=== PATIENT | female | born 1930 | race African-American/Black ===

== ENCOUNTER → 2017-11-20 | Outpatient (CLI) | payer MEDICARE, OTHER, MEDICAID ==
[~2017-11-20] MED LIST: ANAS1TAB49 PO; ASPI81TA33 PO; AZIL1TAB3 PO; DILT240C93 PO; ESOM20CA31 PO; ROSU20 PO; TRAVZOS OP
[2017-11-20 13:27] LABS: ALANINE AMINOTRANSFERASE 19 U/L (12-78); ALBUMIN 3.6 g/dL (3.4-5.0); ALKALINE PHOSPHATASE 115 U/L (46-116); ANION GAP 6 mmol/L (8-16); ASPARTATE AMINOTRANSFERASE 18 U/L (15-37); BILIRUBIN,TOTAL 0.3 mg/dL (0.1-1.0); CALCIUM, TOTAL 9.6 mg/dL (8.8-10.5); CARBON DIOXIDE 32 mmol/L (22-29); CHLORIDE 102 mmol/L (98-107); CREATININE 0.84 mg/dL (0.60-1.30); GLOMERULAR FILTR. RATE CALC > 60 mL/min (>60); GLUCOSE,RANDOM 95 mg/dL (70-110); SODIUM SERUM 140 mmol/L (136-145); TOTAL PROTEIN, SERUM 7.2 g/dL (6.4-8.2); UREA NITROGEN, BLOOD 16 mg/dL (7-18)
== END | disposition home or self-care (01) ==
LOC: LABPV 10:55
PROVIDERS: ATTEND Internal Medicine Gastroenterology
DX: K86.2 Cyst of pancreas (principal)

== ENCOUNTER → 2017-11-25 | Outpatient (CLI) | payer MEDICARE, OTHER ==
[~2017-11-25] VITALS: Ht 172.7 cm; Wt 75.0 kg
[~2017-11-25] MED LIST changes: +ALBU8HFA IH; +BENZ-51 PO; +MEGE40 PO; +MOME17N NASAL; +MONT10TA21 PO
[2017-11-25 09:52] VITALS: BP 102/60
== END | disposition home or self-care (01) ==
LOC: SRCNTR 09:39
PROVIDERS: ATTEND Internal Medicine Cardiovascular Disease
DX: I11.9 Hypertensive heart disease without heart failure (principal); I25.10 Atherosclerotic heart disease of native coronary artery without angina pectoris; J06.9 Acute upper respiratory infection, unspecified; Z86.73 Personal history of transient ischemic attack (TIA), and cerebral infarction without residual deficits; Z98.61 Coronary angioplasty status; Z92.3 Personal history of irradiation
CPT/HCPCS: G0463

== ENCOUNTER → 2018-01-14 | Outpatient (CLI) | payer MEDICARE, OTHER ==
[~2018-01-14] VITALS: Ht 172.7 cm; Wt 75.0 kg
[~2018-01-14] MED LIST changes: -ASPI81TA33 PO; +ASPI81TA42 PO; +ATOR20TA86 PO; -AZIL1TAB3 PO; +DILT120C95 PO; -DILT240C93 PO; -ESOM20CA31 PO; +KCIT5T PO; -ROSU20 PO; -TRAVZOS OP
[2018-01-14 10:38] VITALS: BP 135/70
== END | disposition home or self-care (01) ==
LOC: SRCNTR 10:14
PROVIDERS: ATTEND Internal Medicine Cardiovascular Disease
DX: I11.9 Hypertensive heart disease without heart failure (principal); I25.10 Atherosclerotic heart disease of native coronary artery without angina pectoris; Y84.2 Radiological procedure and radiotherapy as the cause of abnormal reaction of the patient, or of later complication, without mention of misadventure at the time of the procedure; Z79.82 Long term (current) use of aspirin; Z85.3 Personal history of malignant neoplasm of breast; Z86.73 Personal history of transient ischemic attack (TIA), and cerebral infarction without residual deficits; Z98.61 Coronary angioplasty status; Z92.3 Personal history of irradiation
CPT/HCPCS: 93005; G0463

== ENCOUNTER → 2018-01-15 | Outpatient (CLI) | payer MEDICARE, MEDICAID, OTHER ==
[~2018-01-15] MED LIST changes: -ANAS1TAB49 PO; -ASPI81TA42 PO; -ATOR20TA86 PO; -DILT120C95 PO; -KCIT5T PO; -MOME17N NASAL
[2018-01-15 10:06] LABS: BASOPHILS % (AUTO) 0.4 % (0.0-2.0); EOSINOPHILS % (AUTO) 1.5 % (1.0-6.0); HEMATOCRIT 38.6 % (36-46); HEMOGLOBIN 13.3 g/dL (12.0-16.0); LYMPHOCYTES # (AUTO) 2.3 K/uL (1.0-4.8); LYMPHOCYTES % (AUTO) 29.4 % (22.0-44.0); MEAN CORPUSCULAR HEMOGLOBIN 30.5 pg (26.0-34.0); MEAN CORPUSCULAR HGB CONC 34.4 G/dL (31.0-37.0); MEAN CORPUSCULAR VOLUME 89 fL (80-100); MONOCYTES # (AUTO) 0.8 K/uL (0.1-1.0); MONOCYTES % (AUTO) 10.1 % (2.0-9.0); NEUTROPHILS # (AUTO) 4.6 K/uL (1.8-7.7); NEUTROPHILS % (AUTO) 58.6 % (40.0-70.0); PLATELET COUNT (AUTO) 286 K/uL (150-450); RED BLOOD CELL COUNT(AUTO) 4.35 MIL/uL (4.00-5.20); RED CELL DISTRIBUTION WIDTH 14.4 % (11.5-14.5)
[2018-01-15 10:12] LABS: HEMOGLOBIN A1C 5.8 % (4.5-6.2)
[2018-01-15 10:23] LABS: ALBUMIN 3.6 g/dL (3.4-5.0); BILIRUBIN,TOTAL 0.6 mg/dL (0.1-1.0); CALCIUM, TOTAL 9.5 mg/dL (8.8-10.5); CHOL/HDL RATIO 2.5 (3.9-5.7); CREATININE 1.05 mg/dL (0.60-1.30); POTASSIUM 4.1 mmol/L (3.5-5.1); THYROID STIMULATING HORMONE 1.57 uIU/mL (0.36-3.74); TOTAL PROTEIN, SERUM 7.5 g/dL (6.4-8.2)
[2018-01-15 10:54] LABS: APPEARANCE,URINE TURBID (CLEAR); BILIRUBIN,URINE NEGATIVE (NEGATIVE); GLUCOSE, URINE (UA) NEGATIVE (NEGATIVE); KETONES,URINE NEGATIVE (NEGATIVE); LEUKOCYTE ESTERASE ,URINE LARGE (NEGATIVE); NITRATE,URINE NEGATIVE (NEGATIVE); OCCULT BLOOD,URINE SMALL (NEGATIVE); PH,URINE 6.5 (5.0-8.0); PROTEIN,URINE NEGATIVE (NEGATIVE); UROBILINOGEN,URINE 0.2 mg/dL (<=1.0)
[2018-01-15 11:06] LABS: BACTERIA,URINE Few /HPF (None Seen); RBC,URINE 0-2 /HPF (0-2); WBC,URINE Full Field /HPF (0-5)
[2018-01-15 11:07] LABS: SQUAMOUS EPITHELIAL CELL,UR Rare /LPF (None Seen)
== END | disposition home or self-care (01) ==
LOC: LABPV 08:54
PROVIDERS: ATTEND Internal Medicine Cardiovascular Disease
DX: I25.10 Atherosclerotic heart disease of native coronary artery without angina pectoris (principal); I11.9 Hypertensive heart disease without heart failure; R82.99 Other abnormal findings in urine; Z86.73 Personal history of transient ischemic attack (TIA), and cerebral infarction without residual deficits; R79.89 Other specified abnormal findings of blood chemistry
CPT/HCPCS: 82271; 83036; 84443; 87086

== ENCOUNTER → 2018-02-19 | Outpatient (CLI) | payer MEDICARE, MEDICAID, OTHER ==
[~2018-02-19] MED LIST changes: +ANAS1TAB49 PO; +ASPI81TA42 PO; +ATOR20TA86 PO; +DILT120C95 PO; +KCIT5T PO
[2018-02-19 11:18] VITALS: BP 106/70
== END | disposition home or self-care (01) ==
LOC: SRCNTR 10:58
PROVIDERS: ATTEND Internal Medicine Cardiovascular Disease
DX: I11.9 Hypertensive heart disease without heart failure (principal); I25.10 Atherosclerotic heart disease of native coronary artery without angina pectoris; C50.919 Malignant neoplasm of unspecified site of unspecified female breast; H54.3 Unqualified visual loss, both eyes; Z79.82 Long term (current) use of aspirin; Z86.73 Personal history of transient ischemic attack (TIA), and cerebral infarction without residual deficits; Z95.5 Presence of coronary angioplasty implant and graft; Z92.3 Personal history of irradiation
CPT/HCPCS: G0463

== ENCOUNTER → 2018-04-21 | Outpatient (CLI) | payer MEDICARE, MEDICAID, OTHER ==
[~2018-04-21] VITALS: Ht 172.7 cm; Wt 73.5 kg
[~2018-04-21] MED LIST changes: -ANAS1TAB49 PO; +ANAS1TAB50 PO; +ASCO500 PO; +AZIL40TA PO; +MAGN250T2 PO; +VITAD1000 PO
[2018-04-21 09:44] VITALS: BP 116/64
== END | disposition home or self-care (01) ==
LOC: SRCNTR 09:30
PROVIDERS: ATTEND Internal Medicine Cardiovascular Disease
DX: I11.9 Hypertensive heart disease without heart failure (principal); I25.10 Atherosclerotic heart disease of native coronary artery without angina pectoris; E78.5 Hyperlipidemia, unspecified
CPT/HCPCS: G0463

== ENCOUNTER → 2018-07-14 | Outpatient (CLI) | payer MEDICARE, MEDICAID, OTHER ==
[~2018-07-14] VITALS: Ht 172.7 cm; Wt 75.5 kg
[~2018-07-14] MED LIST changes: -ALBU8HFA IH; -BENZ-51 PO; -MEGE40 PO; -MONT10TA21 PO
[2018-07-14 10:09] VITALS: BP 139/75
== END | disposition home or self-care (01) ==
LOC: SRCNTR 09:52
PROVIDERS: ATTEND Internal Medicine Cardiovascular Disease
DX: I11.9 Hypertensive heart disease without heart failure (principal); I25.10 Atherosclerotic heart disease of native coronary artery without angina pectoris; E78.5 Hyperlipidemia, unspecified; Z85.3 Personal history of malignant neoplasm of breast; Z86.73 Personal history of transient ischemic attack (TIA), and cerebral infarction without residual deficits
CPT/HCPCS: G0463

== ENCOUNTER → 2018-11-03 | Outpatient (CLI) | payer MEDICARE, OTHER ==
[~2018-11-03] MED LIST changes: +AZIL1TAB3 PO; +BRIM155OS OU; +METO25 PO; +MULT-1259 PO; +[UNRECOGNIZED DRUG - OTHER] PO
[2018-11-03 14:33] LABS: ALANINE AMINOTRANSFERASE 25 U/L (12-78); ALBUMIN 3.7 g/dL (3.4-5.0); ALKALINE PHOSPHATASE 112 U/L (46-116); ANION GAP 6 mmol/L (8-16); ASPARTATE AMINOTRANSFERASE 28 U/L (15-37); BILIRUBIN,TOTAL 0.4 mg/dL (0.1-1.0); CALCIUM, TOTAL 9.6 mg/dL (8.8-10.5); CARBON DIOXIDE 31 mmol/L (22-29); CHLORIDE 97 mmol/L (98-107); CHOL/HDL RATIO 2.2 (3.9-5.7); CHOLESTEROL 171 mg/dL (131-200); CREATININE 0.82 mg/dL (0.60-1.30); GLUCOSE,RANDOM 99 mg/dL (70-110); HDL CHOLESTEROL 79 mg/dL (40-60); LDL CHOL (CALC.) 74 mg/dL (0-130); POTASSIUM 3.5 mmol/L (3.5-5.1); SODIUM SERUM 134 mmol/L (136-145); TOTAL PROTEIN, SERUM 7.6 g/dL (6.4-8.2); TRIGLYCERIDES 92 mg/dL (15-150); UREA NITROGEN, BLOOD 16 mg/dL (7-18)
[2018-11-03 14:36] LABS: BASOPHILS % (AUTO) 0.6 % (0.0-2.0); EOSINOPHILS % (AUTO) 0.9 % (1.0-6.0); GLOMERULAR FILTR. RATE CALC > 60 mL/min (>60); HEMATOCRIT 38.4 % (36-46); HEMOGLOBIN 12.8 g/dL (12.0-16.0); HEMOGLOBIN A1C 5.9 % (4.5-6.2); LYMPHOCYTES # (AUTO) 1.5 K/uL (1.0-4.8); LYMPHOCYTES % (AUTO) 23.3 % (22.0-44.0); MEAN CORPUSCULAR HEMOGLOBIN 29.8 pg (26.0-34.0); MEAN CORPUSCULAR HGB CONC 33.4 G/dL (31.0-37.0); MEAN CORPUSCULAR VOLUME 89 fL (80-100); MONOCYTES # (AUTO) 0.5 K/uL (0.1-1.0); MONOCYTES % (AUTO) 8.1 % (2.0-9.0); NEUTROPHILS # (AUTO) 4.4 K/uL (1.8-7.7); NEUTROPHILS % (AUTO) 67.1 % (40.0-70.0); PLATELET COUNT (AUTO) 304 K/uL (150-450); RED CELL DISTRIBUTION WIDTH 14.5 % (11.5-14.5)
== END | disposition home or self-care (01) ==
LOC: LABPV 11:27
PROVIDERS: ATTEND Internal Medicine Cardiovascular Disease
DX: I10 Essential (primary) hypertension (principal); I25.10 Atherosclerotic heart disease of native coronary artery without angina pectoris; Z88.6 Allergy status to analgesic agent; Z88.1 Allergy status to other antibiotic agents; E78.5 Hyperlipidemia, unspecified; Z79.82 Long term (current) use of aspirin; Z79.899 Other long term (current) drug therapy
CPT/HCPCS: 83036

== ENCOUNTER → 2018-11-03 | Outpatient (CLI) | payer MEDICARE, MEDICAID, OTHER ==
[~2018-11-03] VITALS: Ht 172.7 cm; Wt 74.5 kg
[2018-11-03 10:16] VITALS: BP 126/64
== END | disposition home or self-care (01) ==
LOC: SRCNTR 10:10
PROVIDERS: ATTEND Internal Medicine Cardiovascular Disease
DX: E78.5 Hyperlipidemia, unspecified (principal); I10 Essential (primary) hypertension; I25.10 Atherosclerotic heart disease of native coronary artery without angina pectoris; Z85.3 Personal history of malignant neoplasm of breast
CPT/HCPCS: 93005; G0463

== ENCOUNTER → 2018-12-08 | Outpatient (CLI) | payer MEDICARE, MEDICAID, OTHER ==
[~2018-12-08] VITALS: Ht 172.7 cm; Wt 75.0 kg
[~2018-12-08] MED LIST changes: -ASCO500 PO; -AZIL40TA PO; -MAGN250T2 PO; -VITAD1000 PO; -[UNRECOGNIZED DRUG - OTHER] PO
[2018-12-08 10:59] VITALS: BP 133/65
== END | disposition home or self-care (01) ==
LOC: SRCNTR 10:32
PROVIDERS: ATTEND Internal Medicine Cardiovascular Disease
DX: E78.5 Hyperlipidemia, unspecified (principal); I10 Essential (primary) hypertension; I25.10 Atherosclerotic heart disease of native coronary artery without angina pectoris
CPT/HCPCS: G0463

== ENCOUNTER → 2019-07-31 | Outpatient (CLI) | payer MEDICARE, MEDICAID, OTHER ==
[~2019-07-31] MED LIST changes: +ASPI81TA40 PO; -ASPI81TA42 PO
[2019-07-31 10:41] VITALS: BP 123/61
== END | disposition home or self-care (01) ==
LOC: SRCNTR 10:41
PROVIDERS: ATTEND Internal Medicine Cardiovascular Disease
DX: I10 Essential (primary) hypertension (principal); E78.5 Hyperlipidemia, unspecified; H54.7 Unspecified visual loss; Z79.82 Long term (current) use of aspirin; Z79.899 Other long term (current) drug therapy
CPT/HCPCS: G0463